=== PATIENT | female | born 1995 | race Caucasian/White ===

== ENCOUNTER 2020-01-24 00:13 | Emergency (ER) | payer SELFPAY ==
[~2020-01-24] VITALS: Ht 165.1 cm; Wt 74.8 kg
[2020-01-24 00:20] VITALS: BP_SYST 150
[2020-01-24 05:00] VITALS: BP_SYST 136
== END 2020-01-24 05:00 | disposition home or self-care (01) ==
LOC: SED 00:13
DX: T49.6X5A Adverse effect of otorhinolaryngological drugs and preparations, initial encounter (principal); Y92.89 Other specified places as the place of occurrence of the external cause
CPT/HCPCS: 99281